=== PATIENT | male | born 2000 | race Hispanic/Latino ===

== ENCOUNTER 2021-03-17 16:50 | Emergency (ER) | payer MEDICAID ==
[~2021-03-17] VITALS: Ht 167.6 cm; Wt 72.6 kg
[2021-03-17 19:24] VITALS: BP 112/72
== END 2021-03-17 20:04 | disposition home or self-care (01) ==
LOC: EDH 16:50
DX: U07.1 COVID-19 (principal)
CPT/HCPCS: 87635; 99283; C9803